=== PATIENT | female | born 1970 | race Caucasian/White ===

== ENCOUNTER 2017-03-01 17:37 | Emergency (ER) | payer MEDICAID ==
[2017-03-01] MEDS ORDERED: Sodium Chloride 0.9% 1,000 ML IV STA (18:23)
[2017-03-01] MEDS ORDERED: Sodium Chloride 0.9% 10 ML Syringe FLUSH PRN ×3 (18:23→18:47)
--- NOTE | 2017-03-01 18:33 | EDM.PDOC ---
ED HPI GENERAL MEDICAL PROBLEM - General Chief Complaint: Gastrointestinal Problem Stated Complaint: ABD PAIN/VOMITING/BLEEDING RECTALLY Time Seen by Provider: 03/01/17 18:02 Source of Information: Reports: Patient History Limitations: Reports: No Limitations - History of Present Illness INITIAL COMMENTS - FREE TEXT/NARRATIVE: Onset of abdominal pain this AM about 12 hours ago. Nauseated, followed by one loose stool. Since then a number of small bloody stools. 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: Ectopic , Fibroids, Other OB/BYN History: C SECTION Psychiatric History: Reports: Anxiety, Depression Other Endocrine/Metabolic History: GESTATIONAL DIABETES - Infectious Disease History Infectious Disease History: Reports: Herpes - Past Surgical History Other HEENT Surgeries/Procedures: NASAL FX, PLASTIC CHEEK SURGERY Social & Family History - Tobacco Use Smoking Status *Q: Unknown Ever Smoked ED ROS GENERAL - Review of Systems Review Of Systems: See Below Constitutional: Reports: Chills, Malaise, Weakness HEENT: Reports: No Symptoms Respiratory: Reports: No Symptoms Cardiovascular: Reports: No Symptoms Endocrine: Reports: No Symptoms GI/Abdominal: Reports: Abdominal Pain, Bloody Stool, Diarrhea. Denies: Melena : Reports: No Symptoms Musculoskeletal: Reports: No Symptoms Skin: Reports: No Symptoms Neurological: Reports: No Symptoms Psychiatric: Reports: No Symptoms Hematologic/Lymphatic: Reports: No Symptoms Immunologic: Reports: No Symptoms ED EXAM, GI/ABD - Physical Exam Exam: See Below Exam Limited By: No Limitations General Appearance: Alert, WD/WN, No Apparent Distress Ears: Normal External Exam Nose: Normal Inspection Throat/Mouth: Normal Inspection Head: Normocephalic Neck: Normal Inspection, Supple Respiratory/Chest: No Respiratory Distress, Lungs Clear Cardiovascular: Normal Peripheral Pulses, Regular Rate, Rhythm, No Edema GI/Abdominal Exam: Normal Bowel Sounds, Soft, No Distention, Tender (mild in lower mid abdomen). No: Guarding, Rebound (Female) Exam: Deferred Rectal (Female) Exam: Deferred (exam in clinic with no obvious external source, blood on tip of glove) Back Exam: Normal Inspection Extremities: Normal Inspection Neurological: Alert, Oriented Psychiatric: Normal Affect, Normal Mood Skin Exam: Warm, Dry Lymphatic: No Adenopathy Course - Vital Signs Text/Narrative:: Seen on admit with family in room. Orders placed Last Recorded V/S: Last Vital Signs Temp 37.6 C 03/01/17 17:52 Pulse 74 03/01/17 19:38 Resp 16 03/01/17 19:38 BP 125/69 03/01/17 19:38 Pulse Ox 100 03/01/17 19:38 Orthostatic Blood Pressure [ 114/82 Standing] Orthostatic Blood Pressure [ 120/84 Sitting] Orthostatic Blood Pressure [ 118/72 Supine] - Orders/Labs/Meds Orders: Active Orders 24 hr Category Date Time Status Orthostatic Vital Signs [RC] ASDIRECTED Care 03/01/17 18:24 Active Peripheral IV Care [RC] . DIRECTED Care 03/01/17 18:26 Active Up With Assistance [RC] ASDIRECTED Care 03/01/17 18:23 Active Abdomen Pelvis w Cont [CT] Urgent Exams 03/01/17 18:25 Taken Iopamidol [Isovue-300 (61%)] Med 03/01/17 19:00 Active 112 ml IV . DIRECTED Sodium Chloride 0.9% [Saline Flush] Med 03/01/17 18:23 Active 10 ml FLUSH ASDIRECTED PRN Sodium Chloride 0.9% [Saline Flush] Med 03/01/17 18:23 Active 10 ml FLUSH ASDIRECTED PRN Sodium Chloride 0.9% [Saline Flush] Med 03/01/17 18:47 Active 10 ml FLUSH ONETIME PRN Peripheral IV Insertion Adult [OM.PC] Urgent Oth 03/01/17 18:23 Ordered Medication Orders Iopamidol (Isovue-300 (61%)) 112 ml IV . DIRECTED [facility] Last Admin: 03/01/17 19:29 Dose: 150 ml Sodium Chloride (Saline Flush) 10 ml FLUSH ASDIRECTED PRN PRN Reason: Keep Vein Open Last Admin: 03/01/17 19:35 Dose: 10 ml Sodium Chloride (Saline Flush) 10 ml FLUSH ASDIRECTED PRN PRN Reason: Keep Vein Open Last Admin: 03/01/17 19:35 Dose: 10 ml Sodium Chloride (Saline Flush) 10 ml FLUSH ONETIME PRN PRN Reason: PER RADIOLOGY PROTOCOL Last Admin: 03/01/17 19:29 Dose: 10 ml Labs: Laboratory Tests 03/01/17 03/01/17 03/01/17 Range/Units 18:38 18:38 18:55 WBC 13.3 H (4.5-11.0) K/uL RBC 5.11 (3.30-5.50) M/uL Hgb 14.8 (12.0-15.0) g/dL Hct 42.8 (36.0-48.0) % MCV 84 (80-98) fL MCH 29 (27-31) pg MCHC 35 (32-36) % Plt Count 258 (150-400) K/uL Neut % (Auto) 78 H (36-66) % Lymph % (Auto) 13 L (24-44) % [place] % (Auto) 9 H (2-6) % Eos % (Auto) 0 L (2-4) % Baso % (Auto) 0 (0-1) % Sodium 138 L (140-148) mmol/L Potassium 3.6 (3.6-5.2) mmol/L Chloride 103 (100-108) mmol/L Carbon Dioxide 25 (21-32) mmol/L Anion Gap 13.6 (5.0-14.0) mmol/L BUN 12 (7-18) mg/dL Creatinine 0.8 (0.6-1.0) mg/dL Est Cr Clr Drug Dosing 70.24 mL/min Estimated GFR (MDRD) > 60 (>60) Glucose 101 (74-106) mg/dL Calcium 8.6 (8.5-10.1) mg/dL Total Bilirubin 0.4 (0.2-1.0) mg/dL AST 20 (15-37) U/L ALT 35 (12-78) U/L Alkaline Phosphatase 59 (46-116) U/L Total Protein 8.2 (6.4-8.2) g/dL Albumin 4.0 (3.4-5.0) g/dL Globulin 4.2 H (2.3-3.5) g/dL Albumin/Globulin Ratio 1.0 L (1.2-2.2) Urine Color Yellow Urine Appearance Clear Urine pH 5.0 (4.5-8.0) Ur Specific [place] 1.030 (1.008-1.030) Urine Protein Negative (NEGATIVE) mg/dL Urine Glucose (UA) Normal (NEGATIVE) mg/dL Urine Ketones 15 H (NEGATIVE) mg/dL Urine Occult Blood Moderate (NEGATIVE) Urine Nitrite Negative (NEGATIVE) Urine Bilirubin Negative (NEGATIVE) Urine Urobilinogen Normal (NORMAL) mg/dL Ur Leukocyte Esterase Negative (NEGATIVE) Meds: Medications Generic Name Dose Route Start Last Admin Trade Name Sam PRN Reason Stop Dose Admin Iopamidol 112 ml 03/01/17 19:00 03/01/17 19:29 Isovue-300 (61%) IV 150 ml . DIRECTED RUBEN Administration Sodium Chloride 10 ml 03/01/17 18:23 03/01/17 19:35 Saline Flush FLUSH 10 ml ASDIRECTED PRN Administration Keep Vein Open Sodium Chloride 10 ml 03/01/17 18:23 03/01/17 19:35 Saline Flush FLUSH 10 ml ASDIRECTED PRN Administration Keep Vein Open Sodium Chloride 10 ml 03/01/17 18:47 03/01/17 19:29 Saline Flush FLUSH 10 ml ONETIME PRN Administration PER RADIOLOGY PROTOCOL Discontinued Medications Generic Name Dose Route Start Last Admin Trade Name Sam PRN Reason Stop Dose Admin Sodium Chloride 1,000 mls @ 500 mls/hr 03/01/17 18:23 03/01/17 19:35 Normal Saline IV 03/01/17 20:22 500 mls/hr .BOLUS STA Administration Sodium Chloride 74 mls @ 3 mls/sec 03/01/17 18:47 03/01/17 19:29 Normal Saline IV 03/01/17 18:48 3 mls/sec ONETIME ONE Administration - Radiology Interpretation Free Text/Narrative:: per radiology showing area of bowel wall thickening near the sigmoid flexure CT Results Date: 03/01/17 - Re-Assessments/Exams Free Text/Narrative Re-Assessment/Exam: 03/01/17 20:26 Labwork with mild elevation in WBC, Hgb good. CT with area of bowel wall thickening at the sigmoid flexure. No more stools since 1430, 6 hours ago Appears to have colitis, likely infectious, with some mild bleeding She would like to go home, and try clear fluids overnite She should set up an appointment with primary care and have a colonoscopy done If bleeding and pain worsens overnite, should come back to the ED Departure - Departure Time of Disposition: 20:29 Disposition: Home, Self-Care 01 Clinical Impression: Colitis - Discharge Information Instructions: Abdominal Pain, Adult, [id number] Referrals: PCP,None [Primary Care Provider] - Forms: ED Department Discharge Additional Instructions: may go home, try clear fluids. Plan to follow-up with your primary care provider and consider having a colonoscopy in the future - Problem List Review Problem List Initiated/Reviewed/Updated: Yes - My Orders Last 24 Hours: My Active Orders 03/01/17 18:23 Up With Assistance [RC] ASDIRECTED Sodium Chloride 0.9% [Saline Flush] 10 ml FLUSH ASDIRECTED PRN Sodium Chloride 0.9% [Saline Flush] 10 ml FLUSH ASDIRECTED PRN Peripheral IV Insertion Adult [OM.PC] Urgent 03/01/17 18:24 Orthostatic Vital Signs [RC] ASDIRECTED 03/01/17 18:25 Abdomen Pelvis w Cont [CT] Urgent 03/01/17 18:26 Peripheral IV Care [RC] . DIRECTED 03/01/17 18:47 Sodium Chloride 0.9% [Saline Flush] 10 ml FLUSH ONETIME PRN 03/01/17 19:00 Iopamidol [Isovue-300 (61%)] 112 ml IV . DIRECTED - Assessment/Plan Last 24 Hours: My Active Orders 03/01/17 18:23 Up With Assistance [RC] ASDIRECTED Sodium Chloride 0.9% [Saline Flush] 10 ml FLUSH ASDIRECTED PRN Sodium Chloride 0.9% [Saline Flush] 10 ml FLUSH ASDIRECTED PRN Peripheral IV Insertion Adult [OM.PC] Urgent 03/01/17 18:24 Orthostatic Vital Signs [RC] ASDIRECTED 03/01/17 18:25 Abdomen Pelvis w Cont [CT] Urgent 03/01/17 18:26 Peripheral IV Care [RC] . DIRECTED 03/01/17 18:47 Sodium Chloride 0.9% [Saline Flush] 10 ml FLUSH ONETIME PRN 03/01/17 19:00 Iopamidol [Isovue-300 (61%)] 112 ml IV . DIRECTED
[2017-03-01] MEDS ORDERED: Iopamidol 612 MG/ML 150 ML Bottle IV SCH (19:00)
[2017-03-01 20:27] VITALS: BP 121/77
== END 2017-03-01 21:55 | disposition home or self-care (01) ==
LOC: JP.ED 17:37
DX: K52.9 Noninfective gastroenteritis and colitis, unspecified (principal)
CPT/HCPCS: 36415; 74177; 80053; 81003; 85025; 96360; 96361; 99284; J7030; J7040; J7050

== ENCOUNTER 2021-06-15 19:03 | Emergency (ER) | payer MEDICAID ==
[2021-06-15 19:24] VITALS: BP 122/75; PULSE 84
[2021-06-15 20:07] LABS: CORONAVIRUS COVID-19 NAA NEGATIVE (NEGATIVE)
--- NOTE | 2021-06-15 21:03 | EDM.PDOC ---
ED HPI GENERAL MEDICAL PROBLEM - General Chief Complaint: Headache Stated Complaint: POSSIBLE MEDICATION REACTION-DIZZY AND SORE THROAT Time Seen by Provider: 06/15/21 19:35 Source of Information: Reports: Patient History Limitations: Reports: No Limitations - History of Present Illness INITIAL COMMENTS - FREE TEXT/NARRATIVE: Female presenting to the ED for evaluation of headache, swollen cervical glands, facial pressure and generally not feeling well. She was seen in the clinic 4 days ago and she was diagnosed with a urinary tract infection and started on Bactrim DS. She has had 3 days of doses of this but feels somewhat better. She states that today she developed a frontal headache with pain radiating across her forehead into her face and down her neck. She felt like she had some swelling in her throat and thought that her lymph nodes were enlarged. She did take ibuprofen but it did not seem to help until she was on her way into the ER for evaluation. The patient is extremely anxious and talks about her extensive past medical history. 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 TECHNOLOGY SCIENTIST History: C SECTION Musculoskeletal History: Reports: Other (See Below) Other Musculoskeletal History: scoliosis Psychiatric History: Reports: Anxiety, Depression Endocrine/Metabolic History: Reports: Diabetes, Gestational Other Endocrine/Metabolic History: GESTATIONAL DIABETES - Infectious Disease History Infectious Disease History: Reports: Herpes, Novel Coronavirus - Past Surgical History HEENT Surgical History: Reports: Other (See Below) Other HEENT Surgeries/Procedures: NASAL FX, PLASTIC CHEEK SURGERY Other Female Surgeries/Procedures: fibroids removed Social & Family History - Tobacco Use Tobacco Use Status *Q: Never Tobacco User - Caffeine Use Caffeine Use: Reports: Coffee Caffeine Use Comment: 1 cup per day - Recreational Drug Use Recreational Drug Use: No ED ROS GENERAL - Review of Systems Review Of Systems: See Below Constitutional: Reports: No Symptoms HEENT: Reports: Sinus Problem, Other (Facial pain) Respiratory: Reports: Cough Cardiovascular: Reports: No Symptoms Endocrine: Reports: No Symptoms GI/Abdominal: Reports: No Symptoms : Reports: No Symptoms Musculoskeletal: Reports: No Symptoms Skin: Reports: No Symptoms Neurological: Reports: Headache Psychiatric: Reports: No Symptoms Hematologic/Lymphatic: Reports: No Symptoms Immunologic: Reports: No Symptoms - Physical Exam Exam: See Below Exam Limited By: Intoxication General Appearance: Alert, Anxious, Mild Distress Eye Exam: Bilateral Eye: EOMI, PERRL Ears: Normal External Exam Nose: Nasal Swelling, Nasal Drainage, Other (Pain with percussion over the frontal and maxillary sinuses) Throat/Mouth: Normal Inspection, Normal Oropharynx, Normal Voice, No Airway Compromise Head Exam: Atraumatic, Normocephalic Neck: Normal Inspection, Supple Respiratory/Chest: No Respiratory Distress, Lungs Clear, Normal Breath Sounds. No: Crackles, Rales, Rhonchi, Wheezing Cardiovascular: Normal Peripheral Pulses, Regular Rate, Rhythm, No Murmur GI/Abdominal: Normal Bowel Sounds, Soft, Non-Tender Neuro Exam (Abbreviated): Alert, Oriented, Normal Cognition, No Motor/Sensory Deficits Extremities: Normal Inspection Psychiatric: Normal Affect, Anxious Skin Exam: Warm, Dry Course - Vital Signs Last Recorded V/S: Last Vital Signs Temp 37.0 C 06/15/21 19:22 Pulse 84 06/15/21 19:22 Resp 18 06/15/21 19:22 BP 122/75 06/15/21 19:22 Pulse Ox 97 06/15/21 19:22 - Orders/Labs/Meds Orders: Active Orders 24 hr Category Date Time Status Isolation [COMM] Stat Oth 06/15/21 19:14 Ordered Labs: Laboratory Tests 06/15/21 06/15/21 06/15/21 Range/Units 19:30 20:05 20:05 WBC 12.4 H (4.5-11.0) K/uL RBC 4.83 (3.30-5.50) M/uL Hgb 14.0 (12.0-15.0) g/dL Hct 40.5 (36.0-48.0) % MCV 84 (80-98) fL MCH 29 (27-31) pg MCHC 35 (32-36) % Plt Count 284 (150-400) K/uL Neut % (Auto) 73.1 H (36-66) % Lymph % (Auto) 19.8 L (24-44) % [place] % (Auto) 5.6 (2-6) % Eos % (Auto) 1.3 L (2-4) % Baso % (Auto) 0.2 (0-1) % C-Reactive Protein 0.18 (0.0-0.3) mg/dL Urine Color (YELLOW) Urine Appearance (CLEAR) Urine pH (5.0-8.0) Ur Specific [place] (1.008-1.030) Urine Protein (NEGATIVE) mg/dL Urine Glucose (UA) (NEGATIVE) mg/dL Urine Ketones (NEGATIVE) mg/dL Urine Occult Blood (NEGATIVE) Urine Nitrite (NEGATIVE) Urine Bilirubin (NEGATIVE) Urine Urobilinogen (0.2-1.0) EU/dL Ur Leukocyte Esterase (NEGATIVE) Urine RBC (0-5) Urine WBC (0-5) Ur Epithelial Cells Amorphous Sediment Urine Bacteria Urine Mucus Influenza Type A RNA Negative (NEGATIVE) RSV RNA (INAAT) Negative (NEGATIVE) Influenza Type B RNA Negative (NEGATIVE) SARS-CoV-2 RNA (ELIZABETH) Negative (NEGATIVE) 06/15/21 Range/Units 20:46 WBC (4.5-11.0) K/uL RBC (3.30-5.50) M/uL Hgb (12.0-15.0) g/dL Hct (36.0-48.0) % MCV (80-98) fL MCH (27-31) pg MCHC (32-36) % Plt Count (150-400) K/uL Neut % (Auto) (36-66) % Lymph % (Auto) (24-44) % [place] % (Auto) (2-6) % Eos % (Auto) (2-4) % Baso % (Auto) (0-1) % C-Reactive Protein (0.0-0.3) mg/dL Urine Color Yellow (YELLOW) Urine Appearance Slightly cloudy A (CLEAR) Urine pH 6.0 (5.0-8.0) Ur Specific [place] >= 1.030 (1.008-1.030) Urine Protein Negative (NEGATIVE) mg/dL Urine Glucose (UA) Negative (NEGATIVE) mg/dL Urine Ketones Negative (NEGATIVE) mg/dL Urine Occult Blood Trace-intact H (NEGATIVE) Urine Nitrite Negative (NEGATIVE) Urine Bilirubin Negative (NEGATIVE) Urine Urobilinogen 0.2 (0.2-1.0) EU/dL Ur Leukocyte Esterase Negative (NEGATIVE) Urine RBC 0-5 (0-5) Urine WBC 0-5 (0-5) Ur Epithelial Cells Few Amorphous Sediment Not seen Urine Bacteria Few Urine Mucus Not seen Influenza Type A RNA (NEGATIVE) RSV RNA (INAAT) (NEGATIVE) Influenza Type B RNA (NEGATIVE) SARS-CoV-2 RNA (ELIZABETH) (NEGATIVE) - Re-Assessments/Exams Free Text/Narrative Re-Assessment/Exam: 06/15/21 21:06 Labs were returned showing a leukocytosis of 12.4 with a left shift. Hemoglobin of 14.0 and platelet count 284,000. She is negative for Covid, RSV, or influenza. Her comprehensive metabolic panel is unremarkable. C-reactive protein is 0.18. Urinalysis does resolution of her urinary tract infection. My plan is to put her on azithromycin Z-Charles for her acute sinusitis. She may either continue the Bactrim till the end of the prescription or discontinue it, which ever she chooses. Departure - Departure Time of Disposition: 21:07 Disposition: Home, Self-Care 01 Clinical Impression: Acute sinusitis Qualifiers: Sinusitis location: pansinusitis Recurrence: not specified as recurrent Qualified Code(s): J01.40 - Acute pansinusitis, unspecified - Discharge Information Instructions: Sinusitis, Adult, [id number] Referrals: Kelly Falk MD [Primary Care Provider] - Care Plan Goals: Your urinalysis shows that you have resolved your urinary tract infection so you may discontinue the use of Bactrim. We are going to put you on azithromycin for your sinus infection. This has been sent out to the [facility] machine. You will take 2 tablets today followed by 1 tablet a day for the next 4 days. This should resolve your sinus infection. He may also want to consider humidified air or steam to help clear your nasal passages and allow the sinuses to drain. Sepsis Event Note (ED) - Evaluation Sepsis Screening Result: No Definite Risk - Focused Exam Vital Signs: Vital Signs Temp Pulse Resp BP Pulse Ox 06/15/21 19:22 37.0 C 84 18 122/75 97 - Problem List & Annotations (1) Acute sinusitis SNOMED Code(s): 55392460 Code(s): J01.90 - ACUTE SINUSITIS, UNSPECIFIED Status: Acute Priority: Medium Current Visit: Yes Qualifiers: Sinusitis location: pansinusitis Recurrence: not specified as recurrent Qualified Code(s): J01.40 - Acute pansinusitis, unspecified - Problem List Review Problem List Initiated/Reviewed/Updated: Yes - My Orders Last 24 Hours: My Active Orders 06/15/21 19:14 Isolation [COMM] Stat - Assessment/Plan Last 24 Hours: My Active Orders 06/15/21 19:14 Isolation [COMM] Stat
== END 2021-06-15 21:15 | disposition home or self-care (01) ==
LOC: JP.ED 19:03
DX: J01.40 Acute pansinusitis, unspecified (principal); Z20.822 Contact with and (suspected) exposure to COVID-19
CPT/HCPCS: 0241U; 36415; 81001; 85025; 86140; 99283

== ENCOUNTER 2024-10-03 08:12 | Emergency (ER) | payer SELFPAY ==
[2024-10-03 08:22] VITALS: BP 120/82; PULSE 78
[2024-10-03 08:36] LABS: APPEARANCE,URINE CLEAR (CLEAR); BILIRUBIN,URINE NEGATIVE (NEGATIVE); COLOR,URINE YELLOW (YELLOW); GLUCOSE,URINE NEGATIVE (NEGATIVE); KETONES,URINE NEGATIVE (NEGATIVE); LEUKOCYTE ESTERASE,URINE NEGATIVE (NEGATIVE); NITRITE,URINE NEGATIVE (NEGATIVE); OCCULT BLOOD,URINE NEGATIVE (NEGATIVE); PH,URINE 6.5 (5.0-8.0); PROTEIN,URINE NEGATIVE (NEGATIVE); UROBILINOGEN,URINE 0.2 EU/dL (0.2-1.0)
[2024-10-03 08:46] LABS: AMORPHOUS SEDIMENT,URINE NOT SEEN; BACTERIA,URINE MODERATE; EPITHELIAL CELLS,URINE FEW; MUCUS,URINE NOT SEEN; RBC,URINE 0-5 (0-5); WBC,URINE 0-5 (0-5)
[2024-10-03] MEDS ORDERED: Naloxone 0.4 MG/ML SDV IVPUSH PRN (09:05)
[2024-10-03 09:18] LABS: BASOPHILS ABSOLUTE AUTO 0.04 K/uL (0.00-0.10); BASOPHILS PERCENT AUTO 0.6 % (0.1-1.3); EOSINOPHILS ABSOLUTE AUTO 0.11 K/uL (0.00-0.40); EOSINOPHILS PERCENT AUTO 1.8 % (0.0-5.4); HEMATOCRIT 42.8 % (34.3-46.0); HEMOGLOBIN 14.8 g/dL (11.2-15.5); IMMATURE GRAN PERCENT AUTO 0.3 % (0.0-0.7); LYMPHOCYTES ABSOLUTE AUTO 2.21 K/uL (0.8-3.3); LYMPHOCYTES PERCENT AUTO 35.2 % (11.4-47.7); MEAN CORPUSCULAR HEMOGLOBIN 29.5 pg (31.6-35.5); MEAN CORPUSCULAR HGB CONC 34.6 g/dL (31.6-35.5); MEAN CORPUSCULAR VOLUME 85.3 fL (81.4-99.0); MONOCYTES ABSOLUTE AUTO 0.44 K/uL (0.20-0.90); NEUTROPHILS ABSOLUTE AUTO 3.45 K/uL (1.0-7.6); NEUTROPHILS PERCENT AUTO 55.1 % (40.0-78.1); PLATELET COUNT,PLT 224 K/uL (130-375); RED BLOOD CELL COUNT 5.02 M/uL (3.77-5.24); WHITE BLOOD CELL COUNT,WBC 6.3 K/uL (3.2-11.0)
[2024-10-03 09:20] LABS: IMMATURE GRAN ABSOLUTE AUTO 0.02 K/uL (0.00-0.23)
[2024-10-03] MEDS: Sodium Chloride 0.9% 1,000 ML IV ONE (09:30)
[2024-10-03] MEDS: HYDROmorphone 1 MG/ML Syringe IVPUSH PRN (09:38)
[2024-10-03] MEDS: Ondansetron 4 MG/2 ML SDV IVPUSH PRN (09:38)
[2024-10-03 09:49] LABS: ALANINE AMINOTRANSFERASE,ALT 47 U/L (12-78); ALBUMIN 3.6 g/dL (3.4-5.0); ALKALINE PHOSPHATASE 82 U/L (46-116); ANION GAP 11.3 mmol/L (5.0-14.0); ASPARTATE AMNIOTRANSFERASE,AST 26 U/L (15-37); BILIRUBIN TOTAL 0.5 mg/dL (0.2-1.0); BLOOD UREA NITROGEN,BUN 16 mg/dL (7-18); CALCIUM 9.1 mg/dL (8.5-10.1); CARBON DIOXIDE,CO2 26 mmol/L (21-32); CHLORIDE,CL 105 mmol/L (100-108); CREATININE 0.6 mg/dL (0.6-1.0); EST CRCL DRUG DOSING (CG) 86.75 mL/min; ESTIMATED GFR 108 mL/min (>60); GLUCOSE RANDOM 115 mg/dL (74-106); POTASSIUM,K 4.2 mmol/L (3.6-5.2); PROTEIN TOTAL,TP 7.3 g/dL (6.4-8.2); SODIUM,NA 142 mmol/L (140-148); TSH ULTRASENSITIVE 1.198 uIU/mL (0.358-3.740)
[2024-10-03 09:52] LABS: C-REACTIVE PROTEIN < 0.50 mg/dL (<0.50)
[2024-10-03] MEDS: Iopamidol 612 MG/ML 100 ML Bottle IV PRN (10:29)
[2024-10-03] MEDS: Sodium Chloride 0.9% 10 ML Syringe FLUSH ONE (10:29)
[2024-10-03] MEDS: Sodium Chloride 0.9% 80 ML IV SCH (10:29)
== END 2024-10-03 11:47 | disposition home or self-care (01) ==
LOC: JP.ED 08:12
DX: K43.9 Ventral hernia without obstruction or gangrene (principal); G89.29 Other chronic pain; E11.9 Type 2 diabetes mellitus without complications; Z79.1 Long term (current) use of non-steroidal anti-inflammatories (NSAID); Z79.899 Other long term (current) drug therapy; Z86.16 Personal history of COVID-19; Z90.710 Acquired absence of both cervix and uterus
CPT/HCPCS: 36415; 74177; 80053; 81001; 83605; 83690; 84443; 85025; 86140; 96374; 96375; 99284; J1171; J2405; J7030; Q9967